=== PATIENT | male | born 1940 | race Caucasian/White ===

== ENCOUNTER 2018-10-29 19:31 | Inpatient (IN) | payer MEDICARE, BC ==
[~2018-10-29] VITALS: Ht 172.7 cm; Wt 96.6 kg
[2018-10-29] MEDS ORDERED: IV NORMAL SALINE 1000 ML BAG IV ONE (20:15)
[2018-10-29] MEDS ORDERED: ONDANSETRON 4 MG/2 ML VIAL IV ONE (20:15)
[2018-10-29] MEDS ORDERED: ONDANSETRON 4 MG/2 ML VIAL ONE (20:17)
[2018-10-29] MEDS ORDERED: MORPHINE SULFATE 2 MG/1 ML DISP.SYRIN ONE (20:28)
[2018-10-29] MEDS ORDERED: MUPIROCIN 2% OINT 22 GM TUBE TP ONE (20:30)
[2018-10-29] MEDS ORDERED: MUPIROCIN 2% OINT 22 GM TUBE ONE (20:30)
[2018-10-29] MEDS ORDERED: MORPHINE SULFATE 2 MG/1 ML DISP.SYRIN IV ONE (20:30)
--- NOTE | 2018-10-29 20:37 | NUR ---
patient taken down to CT with radioogy [facility].
[2018-10-29 20:38] LABS: BASOPHILS # (AUTO) 0.1 K/uL (0.0-8.0); BASOPHILS % (AUTO) 0.5 % (0.0-2.0); EOSINOPHILS % (AUTO) 0.3 % (0.0-7.0); HEMOGLOBIN 14.2 g/dL (12.5-16.3); LYMPHOCYTES # (AUTO) 1.8 K/uL (20.0-40.0); LYMPHOCYTES % (AUTO) 16.7 % (20.5-51.5); MEAN CORPUSCULAR HEMOGLOBIN 31.2 uug (23.8-33.4); MEAN CORPUSCULAR HGB CONC 33 g/dL (32.5-36.3); MEAN CORPUSCULAR VOLUME 94.2 fL (73.0-96.2); MONOCYTES # (AUTO) 1.2 K/uL (2.0-10.0); MONOCYTES % (AUTO) 10.7 % (0.0-11.0); NEUTROPHILS # (AUTO) 7.9 K/uL (1.8-8.9); NEUTROPHILS % (AUTO) 71.8 % (38.5-71.5); PLATELET COUNT (AUTO) 199 K/uL (152-348); RED BLOOD CELL COUNT(AUTO) 4.56 MIL/uL (4.06-5.63)
[2018-10-29 20:48] LABS: CARBON DIOXIDE 21 mmol/L (21-32); CHLORIDE 108 mmol/L (98-107); CREATININE 1.7 mg/dL (0.6-1.3); GLUCOSE 138 mg/dL (74-106); POTASSIUM 3.9 mmol/L (3.5-5.1); UREA NITROGEN, BLOOD 33 mg/dL (7-18)
[2018-10-29 20:52] LABS: ETHANOL < 3 MG/DL (0-0)
[2018-10-29 20:56] LABS: ALANINE AMINOTRANSFERASE 23 U/L (16-63); ALKALINE PHOSPHATASE 108 U/L (50-136); ASPARTATE AMINOTRANSFERASE 34 U/L (15-37); BILIRUBIN,DIRECT 0.2 mg/dL (0.0-0.2); BILIRUBIN,TOTAL 0.8 mg/dL (0.2-1.0); TOTAL PROTEIN, SERUM 7.2 g/dL (6.4-8.2)
--- NOTE | 2018-10-29 21:00 | NUR ---
No medication list on file, per EMT patient takes Tylenol. Pt confused and disoriented unable to provide any history or meds.
[2018-10-29 21:16] LABS: LIPASE 67 U/L (73-393)
[2018-10-29 21:19] LABS: THYROID STIMULATING HORMONE 1.323 mIU/mL (0.358-3.740)
[2018-10-29] MEDS ORDERED: LEVOFLOXACIN 500 MG/D5W 100ML PIGGYBACK IV ONE (21:30)
[2018-10-29] MEDS ORDERED: CLINDAMYCIN PHOSPHATE 600 MG/4 ML VIAL IM ONE (21:30)
[2018-10-29] MEDS ORDERED: CLINDAMYCIN PHOSPHATE 600 MG/4 ML VIAL ONE (21:42)
[2018-10-29] MEDS ORDERED: LEVOFLOXACIN 500 MG/D5W 100 ML ONE (21:43)
--- NOTE | 2018-10-29 21:55 | NUR ---
Dr. Cruz on panel call with Genevieve Palacios NP. Patient accepted for admission to [facility], diagnosis possible pneumonia.
[2018-10-29] MEDS ORDERED: ACET-73 PO (22:02)
--- NOTE | 2018-10-29 22:28 | NUR ---
unable to take patient to telemetry floor at this time. waiting for house supervispor to locatate sitter/nut steamer staff to be at bedside for patient.
[2018-10-29] MEDS ORDERED: Z GUARD REMEDY PASTE 57 GM TUBE TOP PRN (22:30)
[2018-10-29] MEDS ORDERED: MAGNESIUM HYDROXIDE 30 ML LIQUID UDC PO PRN (22:30)
[2018-10-29] MEDS ORDERED: ONDANSETRON 4 MG/2 ML VIAL IV PRN (22:30)
[2018-10-30 00:55] VITALS: BP 149/62
--- NOTE | 2018-10-30 01:02 | NUR ---
patient transferred to tele via yudy with DANELLE Danielson
[2018-10-30] MEDS: IV NS 1000 ML 1,000 ML IV PRN ×2 (01:41→16:59)
--- NOTE | 2018-10-30 02:00 | NUR ---
Admitting notes: patient received from ER via gurney and transferred to bed. Patient is awake and alert, oriented x 1. VS are WNL and patient is stable. All pertinent assessments completed and integumentary issues noted/photographed per unit protocol. 1:1 sitter at bedside. Current hold in place until 11/01/18 @ 1440h. Will continue to monitor.
[2018-10-30 04:00] VITALS: BP 140/62
--- NOTE | 2018-10-30 04:45 | NUR ---
Left AC IV cath infiltrated. IV cath removed and site elevated with ice pack. New IV site started on left upper arm, 22g with IV NS @ 75mL/hr running.
[2018-10-30 06:10] LABS: BASOPHILS % (AUTO) 0.2 % (0.0-2.0); EOSINOPHILS % (AUTO) 0.1 % (0.0-7.0); HEMATOCRIT 40.2 % (36.7-47.1); HEMOGLOBIN 13.6 g/dL (12.5-16.3); LYMPHOCYTES # (AUTO) 1.9 K/uL (20.0-40.0); LYMPHOCYTES % (AUTO) 14.4 % (20.5-51.5); MEAN CORPUSCULAR HEMOGLOBIN 31.4 uug (23.8-33.4); MEAN CORPUSCULAR HGB CONC 34 g/dL (32.5-36.3); MEAN CORPUSCULAR VOLUME 92.9 fL (73.0-96.2); MONOCYTES # (AUTO) 1.3 K/uL (2.0-10.0); MONOCYTES % (AUTO) 10.2 % (0.0-11.0); NEUTROPHILS # (AUTO) 9.8 K/uL (1.8-8.9); NEUTROPHILS % (AUTO) 75.1 % (38.5-71.5); PLATELET COUNT (AUTO) 189 K/uL (152-348); RED BLOOD CELL COUNT(AUTO) 4.32 MIL/uL (4.06-5.63)
[2018-10-30 06:31] LABS: CARBON DIOXIDE 22 mmol/L (21-32); CHLORIDE 110 mmol/L (98-107); CHOLESTEROL 79 mg/dL (<200); CREATININE 1.4 mg/dL (0.6-1.3); GLUCOSE 118 mg/dL (74-106); HDL CHOLESTEROL 32 mg/dL (40-60); MAGNESIUM 1.8 mg/dL (1.8-2.4); PHOSPHOROUS 2.9 mg/dL (2.5-4.9); POTASSIUM 3.9 mmol/L (3.5-5.1); TRIGLYCERIDES 70 MG/DL (30-150); UREA NITROGEN, BLOOD 28 mg/dL (7-18)
--- NOTE | 2018-10-30 07:00 | NUR ---
Patient is laying in bed, resting comfortably. Patient has slept intermittently. Patient was given prescribed analgesics to relieve pain, as noted on FLACC scale as 5. 1:1 sitter remains at bedside. All safety and fall precaution measures are in place.
--- NOTE | 2018-10-30 07:15 | NUR ---
Received patient in Bed, awake and verbally responsive. On Oxygen at 3LPM via nasal canula, No signs of respiratory distress noted. No SOB. No complain of pain or discomfort. patient with 1:1 sitter, patient on NPO. IVF running at 75 cc/hr. No signs of IV infiltration on Right Upper Arm IV gauge 20 site. Will continue to monitor.
[2018-10-30 11:14] VITALS: BP 152/63
--- NOTE | 2018-10-30 13:00 | NUR ---
Seen and examined by Dr. pritchett with family at bedside.
[2018-10-30 14:46] VITALS: BP 156/63
--- NOTE | 2018-10-30 16:00 | NUR ---
Relayed KUB of ABD result to MAZIN underwood with Order to continue NPO for another day.
--- NOTE | 2018-10-30 16:04 | NUR ---
Patient Blood Pressure ranging from 156/63-153/51 CDL BULK DRIVER Philip made aware with No New Order.
--- NOTE | 2018-10-30 18:32 | NUR ---
patient in Bed, Awake. A/O x1 with Confusion. On Oxygen at 3LPM via nasal Cannula, No signs of Distress noted. No SOB. No complain of Pain or discomfort. FOX gauge 20 IV site intact, No signs of Infiltration noted, IVF running at 75cc/hr. Remains on NPO for another day, and will have a KUB tomorrow. Patient has 1:1 sitter at bedside. All needs attended and met. Will Endorse to Oncoming Nurse.
--- NOTE | 2018-10-30 19:52 | NUR ---
Spoke with Dr Jigna Quintanilla. She informed me that patient is a Benzodiazepine user and may have a withdrawal with seizure. Patient is NPO per hospitalist order. MAZIN Palacios was paged. BP is trending down from SBP of 178/70 to 161/61 now. Patient is more calmn also. Dr Quintanilla ordered 0.5 mg Ativan injection to be given now, pending a conference with attending physician. Bed was padded for seizure safety. Sitter at bedside.
[2018-10-30 20:00] VITALS: BP 164/61
[2018-10-30] MEDS: LORAZEPAM 2 MG/1 ML VIAL IV PRN (20:10)
[2018-10-30] MEDS ORDERED: ENALAPRILAT DIHYDRATE 1.25 MG/1 ML VIAL IV PRN (20:15)
--- NOTE | 2018-10-30 20:18 | NUR ---
Gave 0.5mg ativan IV. 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 Comfort and safety provided.
--- NOTE | 2018-10-30 21:05 | NUR ---
Talked to Dwight HARRIS, received order for Depakone 125mg Q8 IV routinely.
--- NOTE | 2018-10-30 22:00 | NUR ---
Patient is sleeping, had urine output, no BM.
[2018-10-30] MEDS ORDERED: VALPROATE SODIUM 500 MG/5 ML VIAL IV ONE (23:07)
[2018-10-30] MEDS: DEXTROSE 5% IV SCH (23:58)
[2018-10-30] MEDS: VALPROATE SODIUM IV SCH (23:58)
[2018-10-31 05:49] LABS: BASOPHILS % (AUTO) 0.4 % (0.0-2.0); EOSINOPHILS # (AUTO) 0.1 K/uL (0.0-0.7); EOSINOPHILS % (AUTO) 1.3 % (0.0-7.0); HEMATOCRIT 39.2 % (36.7-47.1); HEMOGLOBIN 13.4 g/dL (12.5-16.3); LYMPHOCYTES # (AUTO) 1.8 K/uL (20.0-40.0); LYMPHOCYTES % (AUTO) 23.4 % (20.5-51.5); MEAN CORPUSCULAR HEMOGLOBIN 31.6 uug (23.8-33.4); MEAN CORPUSCULAR HGB CONC 34 g/dL (32.5-36.3); MEAN CORPUSCULAR VOLUME 92.7 fL (73.0-96.2); MONOCYTES # (AUTO) 0.9 K/uL (2.0-10.0); MONOCYTES % (AUTO) 11.8 % (0.0-11.0); NEUTROPHILS % (AUTO) 63.1 % (38.5-71.5); PLATELET COUNT (AUTO) 186 K/uL (152-348); RED BLOOD CELL COUNT(AUTO) 4.23 MIL/uL (4.06-5.63); WHITE BLOOD COUNT (AUTO) 7.9 K/uL (3.6-10.2)
[2018-10-31 06:06] VITALS: BP 162/64
[2018-10-31 06:08] LABS: CARBON DIOXIDE 23 mmol/L (21-32); CHLORIDE 113 mmol/L (98-107); CREATININE 1.2 mg/dL (0.6-1.3); GLUCOSE 105 mg/dL (74-106); MAGNESIUM 1.9 mg/dL (1.8-2.4); PHOSPHOROUS 2.8 mg/dL (2.5-4.9); POTASSIUM 3.8 mmol/L (3.5-5.1); UREA NITROGEN, BLOOD 21 mg/dL (7-18)
[2018-10-31] MEDS: DEXTROSE 5% IV SCH ×2 (06:17→14:39)
[2018-10-31] MEDS: VALPROATE SODIUM IV SCH ×2 (06:17→14:39)
[2018-10-31] MEDS: IV NS 1000 ML 1,000 ML IV PRN ×2 (06:17→21:28)
[2018-10-31 07:42] VITALS: BP 144/52
--- NOTE | 2018-10-31 08:00 | NUR ---
Pt is in no acute distress. Pt confused. Reorient pt to time and place. Sitter at bedside for safety.
[2018-10-31] MEDS: METOCLOPRAMIDE HCL 10 MG/2 ML VIAL IV SCH ×3 (08:31→17:26)
[2018-10-31 12:59] VITALS: BP 154/71
[2018-10-31] MEDS ORDERED: risperiDONE 0.25 MG TABLET PO SCH ×3 (13:45→20:00)
[2018-10-31] MEDS: LORAZEPAM 0.5 MG TABLET PO SCH ×2 (14:39→21:27)
[2018-10-31 16:00] VITALS: BP 141/51
[2018-10-31] MEDS ORDERED: LOSARTAN POTASSIUM 50 MG TABLET PO SCH (17:45)
--- NOTE | 2018-10-31 18:00 | NUR ---
Pt tolerated dinner no n/v. Pt has good swallowing no aspiration noted. Pt stating that "someone is out to get him". Call light is within reach.
[2018-10-31 19:37] VITALS: BP 119/49
[2018-10-31] MEDS: risperiDONE 0.25 MG TABLET PO SCH (20:14)
--- NOTE | 2018-10-31 22:42 | NUR ---
Patient began vomiting, abdomen is firm, distended, absent bowel sounds. Zofran given. Called Genevieve Palacios, MAIL ORDER BILLER, she ordered NG tube placement, NPO, CXR and KUB post insertion. Tube was successfully placed, x-ray done. Emesis seized, abdomen is softer and less distended. Appears calm, no respiratory or cough noted. Lung sounds are clear bilaterally. Will monitor for safety.
[2018-10-31] MEDS: LORAZEPAM 2 MG/1 ML VIAL IV PRN (22:55)
[2018-10-31 23:35] VITALS: BP 119/44
--- NOTE | 2018-11-01 00:05 | NUR ---
Change of assignment, report given to DANELLE Lofton.
[2018-11-01] MEDS: METOCLOPRAMIDE HCL 10 MG/2 ML VIAL IV SCH ×4 (00:28→18:07)
[2018-11-01] MEDS: LORAZEPAM 2 MG/1 ML VIAL IV PRN ×2 (04:28→10:47)
[2018-11-01 05:59] VITALS: BP 130/54
[2018-11-01] MEDS: LORAZEPAM 0.5 MG TABLET PO SCH (06:00)
--- NOTE | 2018-11-01 06:59 | NUR ---
Assumed care; pt has ongoing NGT to drainage total of 1600 ml plus vomitus; pt pulling out lines despite ativan, referred to DR Corey and cameron gibbs; remains on 1:1 sitter; safety maintained. Addendum: 11/01/18 at 0721 by JUDSON DEVINE RN 1600 ml output to LIS
[2018-11-01 07:12] LABS: CARBON DIOXIDE 27 mmol/L (21-32); CHLORIDE 112 mmol/L (98-107); CREATININE 1.3 mg/dL (0.6-1.3); GLUCOSE 126 mg/dL (74-106); PHOSPHOROUS 1.7 mg/dL (2.5-4.9); POTASSIUM 3.1 mmol/L (3.5-5.1); UREA NITROGEN, BLOOD 18 mg/dL (7-18)
[2018-11-01 07:18] LABS: BASOPHILS # (AUTO) 0.1 K/uL (0.0-8.0); BASOPHILS % (AUTO) 0.8 % (0.0-2.0); EOSINOPHILS % (AUTO) 0.1 % (0.0-7.0); HEMATOCRIT 39.2 % (36.7-47.1); HEMOGLOBIN 13.1 g/dL (12.5-16.3); LYMPHOCYTES # (AUTO) 1.1 K/uL (20.0-40.0); LYMPHOCYTES % (AUTO) 8.6 % (20.5-51.5); MEAN CORPUSCULAR HEMOGLOBIN 31.5 uug (23.8-33.4); MEAN CORPUSCULAR HGB CONC 33 g/dL (32.5-36.3); MEAN CORPUSCULAR VOLUME 94.3 fL (73.0-96.2); MONOCYTES % (AUTO) 7.6 % (0.0-11.0); NEUTROPHILS # (AUTO) 10.5 K/uL (1.8-8.9); NEUTROPHILS % (AUTO) 82.9 % (38.5-71.5); PLATELET COUNT (AUTO) 177 K/uL (152-348); RED BLOOD CELL COUNT(AUTO) 4.15 MIL/uL (4.06-5.63)
[2018-11-01 07:29] LABS: WHITE BLOOD COUNT (AUTO) 12.6 K/uL (3.6-10.2)
[2018-11-01 07:48] LABS: MAGNESIUM 1.8 mg/dL (1.8-2.4)
[2018-11-01] MEDS: DIVALPROEX SPRINKLE 125 MG CAP.SPRINK PO SCH ×3 (08:00→17:00)
--- NOTE | 2018-11-01 08:00 | NUR ---
RECEIVED PT RESTING IN BED. NGT PLACEMENT CHECKED. PT WEARS MITTENS DR WELLS ORDERED. PT ON 1:1 SITTER. SAFETY MAINTAINED. NO SIGNS OF SOB OR ACUTE DISTRESS NOTED. TELEMETRY MONITORING. SINUS RHYTHM.WILL CONTINUE TO MONITOR.
[2018-11-01] MEDS: LOSARTAN POTASSIUM 50 MG TABLET PO SCH ×2 (09:00→21:00)
[2018-11-01] MEDS: risperiDONE 0.25 MG TABLET PO SCH (09:00)
[2018-11-01] MEDS: POTASSIUM CHLORIDE 50 ML IV SCH ×4 (10:59→14:47)
[2018-11-01] MEDS: IV NS 1000 ML 1,000 ML IV PRN (11:51)
[2018-11-01] MEDS ORDERED: PIPERACILLIN SODIUM/TAZOBACTAM 3.375 G in IV DEXTROSE 5% 50 ML IV SCH (12:00)
[2018-11-01] MEDS ORDERED: risperiDONE 0.25 MG TABLET PO SCH (13:30)
[2018-11-01] MEDS ORDERED: LORAZEPAM 2 MG/1 ML VIAL IV PRN ×2 (13:45→22:15)
[2018-11-01] MEDS: risperiDONE-M 0.5 MG TAB.RAPDIS PO SCH ×2 (13:54→21:06)
[2018-11-01] MEDS ORDERED: PIPERACILLIN/TAZOBACTAM/D5W 3.375 G in IV DEXTROSE 5% 50 ML IV SCH (14:00)
[2018-11-01] MEDS ORDERED: SODIUM PHOSPHATE MM 15 MM in IV DEXTROSE 5% 250 ML IV ONE (15:15)
[2018-11-01 16:00] VITALS: BP 161/77
--- NOTE | 2018-11-01 18:00 | NUR ---
End of shift report. pt has ongoing NGT to drainage total of 450 ml; , referred to DR Corey and ordered mittens order renewed; remains on 1:1 sitter; safety maintained.
--- NOTE | 2018-11-01 19:45 | NUR ---
Received patient asleep in bed, not in any form of distress. Noted with oxygen support at 3lpm via nasal cannula. With NGT to low intermittent suction, noted with greenish output. Noted with IV access on both arms, both patent and intact. With bilateral soft mittens for safety since patient attempts to pull out tubes. With sitter at bedside for safety. Bed in moderate high back rest to avoid aspiration, locked, side rails up x 2 and padded for safety. Seizure precautions observed. Will continue to monitor.
[2018-11-01 20:00] VITALS: BP 166/65
[2018-11-01] MEDS ORDERED: ACETAMINOPHEN 650 MG SUPP.RECT RC PRN (20:45)
[2018-11-01] MEDS: PIPERACILLIN/TAZOBACTAM/D5W 3.375 G in IV DEXTROSE 5% 50 ML IV SCH (21:12)
[2018-11-02] MEDS: METOCLOPRAMIDE HCL 10 MG/2 ML VIAL IV SCH ×4 (00:31→17:40)
[2018-11-02] MEDS: IV NS 1000 ML 1,000 ML IV PRN ×2 (00:52→15:25)
[2018-11-02] MEDS: PIPERACILLIN/TAZOBACTAM/D5W 3.375 G in IV DEXTROSE 5% 50 ML IV SCH ×3 (05:34→21:01)
[2018-11-02 06:35] VITALS: BP 148/67
[2018-11-02 06:36] LABS: ALANINE AMINOTRANSFERASE 19 U/L (16-63); ALKALINE PHOSPHATASE 78 U/L (50-136); ASPARTATE AMINOTRANSFERASE 24 U/L (15-37); BILIRUBIN,TOTAL 1.1 mg/dL (0.2-1.0); CARBON DIOXIDE 28 mmol/L (21-32); CHLORIDE 113 mmol/L (98-107); CREATININE 1.2 mg/dL (0.6-1.3); GLUCOSE 97 mg/dL (74-106); PHOSPHOROUS 3.1 mg/dL (2.5-4.9); POTASSIUM 3.6 mmol/L (3.5-5.1); UREA NITROGEN, BLOOD 16 mg/dL (7-18)
[2018-11-02 06:52] LABS: BASOPHILS % (AUTO) 0.4 % (0.0-2.0); EOSINOPHILS # (AUTO) 0.4 K/uL (0.0-0.7); EOSINOPHILS % (AUTO) 4.9 % (0.0-7.0); HEMATOCRIT 37.9 % (36.7-47.1); HEMOGLOBIN 12.6 g/dL (12.5-16.3); LYMPHOCYTES # (AUTO) 1.7 K/uL (20.0-40.0); MEAN CORPUSCULAR HEMOGLOBIN 31.6 uug (23.8-33.4); MEAN CORPUSCULAR HGB CONC 33 g/dL (32.5-36.3); MEAN CORPUSCULAR VOLUME 95.1 fL (73.0-96.2); MONOCYTES # (AUTO) 0.7 K/uL (2.0-10.0); MONOCYTES % (AUTO) 8.4 % (0.0-11.0); NEUTROPHILS # (AUTO) 5.1 K/uL (1.8-8.9); NEUTROPHILS % (AUTO) 64.3 % (38.5-71.5); PLATELET COUNT (AUTO) 156 K/uL (152-348); RED BLOOD CELL COUNT(AUTO) 3.99 MIL/uL (4.06-5.63)
--- NOTE | 2018-11-02 06:58 | NUR ---
Patient slept intermittently throughout the night. Still with oxygen support at 3lpm via nasal cannula. With NGT to low intermittent suction, noted with greenish output. Still with IV access on both arms, both patent and intact. Attended all needs. Ensured safety and comfort.
[2018-11-02 07:09] LABS: WHITE BLOOD COUNT (AUTO) 7.9 K/uL (3.6-10.2)
--- NOTE | 2018-11-02 07:15 | NUR ---
Received patient in bed resting with HOB elevated, patient alert and oriented x3. patient on intermittent suction. No hold. With 1:1 sitter for safety. No s/s of acute distress noted and no c/o pain at this time. IV intact and patent. Safety precautions in place. Safety and comfort provided at all times. Call light within reach. Will continue to monitor
[2018-11-02] MEDS ORDERED: LORAZEPAM 2 MG/1 ML VIAL IV PRN (07:45)
[2018-11-02] MEDS: DIVALPROEX SPRINKLE 125 MG CAP.SPRINK PO SCH ×3 (08:00→17:00)
[2018-11-02] MEDS: LOSARTAN POTASSIUM 50 MG TABLET PO SCH ×2 (09:00→20:55)
[2018-11-02] MEDS: risperiDONE-M 0.5 MG TAB.RAPDIS PO SCH ×2 (09:07→21:03)
[2018-11-02 12:00] VITALS: BP 147/59
[2018-11-02] MEDS: LORAZEPAM 2 MG/1 ML VIAL IV PRN ×2 (13:21→23:52)
[2018-11-02 15:00] VITALS: BP 165/59
--- NOTE | 2018-11-02 19:00 | NUR ---
Patient in bed laying comfortably with HOB elevated. continue 1:1 sitter for safety and patient is trying to removed NG tube.no c/o pain and no s/s acute distress noted at this time. provided safety and comfort at all times. kept clean and dry at all times. call light within reached. will continue to monitor.
[2018-11-02 20:00] VITALS: BP 155/62
--- NOTE | 2018-11-03 | NUR ---
NG tube to be discontinued after aspiration per MAZIN Palacios. NG tube discontinued.
[2018-11-03] MEDS: METOCLOPRAMIDE HCL 10 MG/2 ML VIAL IV SCH ×5 (00:29→23:43)
[2018-11-03] MEDS: LORAZEPAM 2 MG/1 ML VIAL IV PRN ×3 (01:40→22:39)
[2018-11-03] MEDS: PIPERACILLIN/TAZOBACTAM/D5W 3.375 G in IV DEXTROSE 5% 50 ML IV SCH ×3 (05:33→21:28)
--- NOTE | 2018-11-03 05:42 | NUR ---
Patient slept intermittently. no signs of acute distress. v/s stable. safety and comfort measures provided. 1:1 sitter at bedside for safety. NG discontinued. Ativan 1mg administered once for anxiety and agitation and 0.5 mg administered once for s/s withdrawal. will endorse care accordingly. risperidone and losartan returned to [facility] once. risperidone returned on accident and pulled from [facility] and administered to patient.
[2018-11-03 06:00] VITALS: BP 145/59
[2018-11-03 06:38] LABS: BASOPHILS % (AUTO) 0.3 % (0.0-2.0); EOSINOPHILS # (AUTO) 0.4 K/uL (0.0-0.7); EOSINOPHILS % (AUTO) 4.7 % (0.0-7.0); HEMATOCRIT 38.5 % (36.7-47.1); HEMOGLOBIN 13.1 g/dL (12.5-16.3); LYMPHOCYTES # (AUTO) 1.6 K/uL (20.0-40.0); LYMPHOCYTES % (AUTO) 20.1 % (20.5-51.5); MEAN CORPUSCULAR HEMOGLOBIN 31.6 uug (23.8-33.4); MEAN CORPUSCULAR HGB CONC 34 g/dL (32.5-36.3); MONOCYTES # (AUTO) 0.5 K/uL (2.0-10.0); MONOCYTES % (AUTO) 6.4 % (0.0-11.0); NEUTROPHILS # (AUTO) 5.5 K/uL (1.8-8.9); NEUTROPHILS % (AUTO) 68.5 % (38.5-71.5); PLATELET COUNT (AUTO) 159 K/uL (152-348); RED BLOOD CELL COUNT(AUTO) 4.14 MIL/uL (4.06-5.63); WHITE BLOOD COUNT (AUTO) 8.1 K/uL (3.6-10.2)
[2018-11-03 07:03] LABS: CARBON DIOXIDE 23 mmol/L (21-32); CHLORIDE 113 mmol/L (98-107); CREATININE 1.1 mg/dL (0.6-1.3); GLUCOSE 86 mg/dL (74-106); POTASSIUM 3.7 mmol/L (3.5-5.1); UREA NITROGEN, BLOOD 17 mg/dL (7-18)
[2018-11-03] MEDS: DIVALPROEX SPRINKLE 125 MG CAP.SPRINK PO SCH ×3 (08:00→17:00)
--- NOTE | 2018-11-03 08:00 | NUR ---
Received patient in bed resting with HOB elevated, patient alert and oriented x2. 1:1 sitter for safety. No s/s of acute distress OR sob noted and no c/o pain at this time. IV intact and patent on L FA and R Hand. Safety precautions in place. Safety and comfort provided at all times. Call light within reach. Will continue to monitor. Pt scheduled for a swallow eval today.
[2018-11-03] MEDS: risperiDONE-M 0.5 MG TAB.RAPDIS PO SCH ×2 (08:48→20:17)
[2018-11-03] MEDS: LOSARTAN POTASSIUM 50 MG TABLET PO SCH ×2 (08:49→20:22)
[2018-11-03] MEDS: IV 1/2NS 1000 ML 1,000 ML IV PRN ×2 (08:51→22:13)
[2018-11-03] MEDS ORDERED: CLONAZEPAM 0.5 MG TABLET PO PRN (10:15)
[2018-11-03 11:00] VITALS: BP 143/73
[2018-11-03 16:00] VITALS: BP 151/61
[2018-11-03] MEDS: ALPRAZOLAM 0.5 MG TABLET PO SCH (17:00)
--- NOTE | 2018-11-03 18:00 | NUR ---
Patient appears comfortable. Still with oxygen support at 3lpm via nasal cannula. IVF running. IV access on both arms, both patent and intact. Attended all needs. Ensured safety and comfort. 1:1 sitter at bedside for safety.
--- NOTE | 2018-11-03 19:30 | NUR ---
Received patient in bed AAOx2. HOB kept elevated for aspiration prec. On O2 at 3lpm. No SOB, not in distress at this time. IV site on RFA intact and patent w/ IVF infusing. Cont w/ 1:1 sitter for safety. Safety measures observed. Call light within reach
[2018-11-03 20:15] VITALS: BP 178/75
[2018-11-03] MEDS: HYDROCODONE/APAP 5-325MG TABLET PO PRN (20:16)
--- NOTE | 2018-11-03 23:00 | NUR ---
Patient noted w/ x1 episode of agitation, trying to pull his IV out, PRN Ativan 1mg IV given, noted effective.
--- NOTE | 2018-11-04 | NUR ---
IV site on RFA got infiltrated, reinserted IV g#22 on R wrist, intact and patent.
[2018-11-04] MEDS: TEMAZEPAM 7.5 MG CAPSULE PO PRN (00:25)
--- NOTE | 2018-11-04 00:30 | NUR ---
Patient asked for sleeping pill, PRN Temazepam 7.5mg PO given.
[2018-11-04] MEDS: PIPERACILLIN/TAZOBACTAM/D5W 3.375 G in IV DEXTROSE 5% 50 ML IV SCH ×3 (06:03→21:15)
[2018-11-04] MEDS: METOCLOPRAMIDE HCL 10 MG/2 ML VIAL IV SCH ×4 (06:03→23:27)
[2018-11-04 06:10] VITALS: BP 169/62
--- NOTE | 2018-11-04 06:26 | NUR ---
Patient slept intermittently. No complaints of pain at this time. No SOB noted. IV site on R wrist intact and patent w/ IVF and IV ATB infusing. Continue on 1:1 sitter for safety, no episode of agitation at this time. All needs attended. Call light in reach. Will endorse accordingly
[2018-11-04] MEDS: LOSARTAN POTASSIUM 50 MG TABLET PO SCH ×2 (06:38→20:25)
[2018-11-04 06:50] LABS: ALANINE AMINOTRANSFERASE 12 U/L (16-63); ALKALINE PHOSPHATASE 68 U/L (50-136); ASPARTATE AMINOTRANSFERASE 16 U/L (15-37); BILIRUBIN,TOTAL 0.9 mg/dL (0.2-1.0); CARBON DIOXIDE 24 mmol/L (21-32); CHLORIDE 112 mmol/L (98-107); GLUCOSE 104 mg/dL (74-106); MAGNESIUM 1.9 mg/dL (1.8-2.4); PHOSPHOROUS 2.9 mg/dL (2.5-4.9); POTASSIUM 3.2 mmol/L (3.5-5.1); TOTAL PROTEIN, SERUM 5.8 g/dL (6.4-8.2); UREA NITROGEN, BLOOD 11 mg/dL (7-18)
[2018-11-04 06:55] LABS: BASOPHILS % (AUTO) 0.4 % (0.0-2.0); EOSINOPHILS # (AUTO) 0.3 K/uL (0.0-0.7); HEMATOCRIT 36.4 % (36.7-47.1); HEMOGLOBIN 12.4 g/dL (12.5-16.3); LYMPHOCYTES # (AUTO) 1.5 K/uL (20.0-40.0); LYMPHOCYTES % (AUTO) 23.1 % (20.5-51.5); MEAN CORPUSCULAR HEMOGLOBIN 31.7 uug (23.8-33.4); MEAN CORPUSCULAR HGB CONC 34 g/dL (32.5-36.3); MONOCYTES # (AUTO) 0.6 K/uL (2.0-10.0); MONOCYTES % (AUTO) 8.9 % (0.0-11.0); NEUTROPHILS # (AUTO) 4.1 K/uL (1.8-8.9); NEUTROPHILS % (AUTO) 62.6 % (38.5-71.5); PLATELET COUNT (AUTO) 159 K/uL (152-348); RED BLOOD CELL COUNT(AUTO) 3.91 MIL/uL (4.06-5.63); WHITE BLOOD COUNT (AUTO) 6.6 K/uL (3.6-10.2)
--- NOTE | 2018-11-04 07:20 | NUR ---
received patient in bed, with 1:1 sitter. Patient is Awake. On Oxygen at 2LPM via nasal Canula. No signs of Respiratory distress noted. No SOB. No complain of Pain or Discomfort. Will continue to monitor.
[2018-11-04] MEDS: DIVALPROEX SPRINKLE 125 MG CAP.SPRINK PO SCH ×3 (08:16→17:11)
[2018-11-04] MEDS: ALPRAZOLAM 0.5 MG TABLET PO SCH ×3 (08:17→17:11)
[2018-11-04] MEDS: risperiDONE-M 0.5 MG TAB.RAPDIS PO SCH ×2 (08:20→20:25)
[2018-11-04] MEDS: POTASSIUM CHLORIDE 50 ML IV SCH ×2 (09:03→10:17)
[2018-11-04] MEDS ORDERED: POTASSIUM CHLORIDE 10 MEQ TAB.PRT.SR PO ONE (10:45)
[2018-11-04] MEDS: HYDROCODONE/APAP 5-325MG TABLET PO PRN (12:30)
[2018-11-04] MEDS ORDERED: LOSA50TA3 PO (12:59)
[2018-11-04] MEDS ORDERED: ALPR0.5T PO (12:59)
[2018-11-04] MEDS ORDERED: RISP0.5T74 PO (12:59)
[2018-11-04] MEDS ORDERED: LEVO500T2 PO (12:59)
[2018-11-04] MEDS ORDERED: ACET650S24 RC (12:59)
[2018-11-04] MEDS ORDERED: HYDR-3326 PO (12:59)
[2018-11-04] MEDS ORDERED: TEMA7.5C PO (12:59)
[2018-11-04] MEDS ORDERED: DIVA125C2 PO (12:59)
[2018-11-04] MEDS: IV 1/2NS 1000 ML 1,000 ML IV PRN (18:02)
--- NOTE | 2018-11-04 18:14 | NUR ---
Patient in Bed, awake and verbally responsive. with 1:1 sitter at bedside. No signs of Respiratory distress noted. No SOB. On oxygen at 2LPM, tolerating well. saturating at 98%. Pain medication given as ordered. All due medications given ad ordered. Will Endorse to Oncoming Nurse.
--- NOTE | 2018-11-04 19:30 | NUR ---
Received patient in bed asleep, arousable. HOB kept elevated for aspiration prec. On O2 at 3lpm via NC saturating at 96%. No SOB, not in distress at this time. IV site on R wrist intact and patent w/ IVF infusing. Safety measures observed. Call light within reach
[2018-11-04 20:17] VITALS: BP 143/61
[2018-11-05] MEDS: TEMAZEPAM 7.5 MG CAPSULE PO PRN (00:59)
--- NOTE | 2018-11-05 01:00 | NUR ---
Patient asked for a sleeping pill, PRN Temazepam 7.5mg PO given.
[2018-11-05] MEDS: PIPERACILLIN/TAZOBACTAM/D5W 3.375 G in IV DEXTROSE 5% 50 ML IV SCH ×2 (05:15→14:05)
[2018-11-05] MEDS: METOCLOPRAMIDE HCL 10 MG/2 ML VIAL IV SCH ×2 (05:21→11:27)
[2018-11-05 05:42] VITALS: BP 135/64
[2018-11-05] MEDS: LORAZEPAM 2 MG/1 ML VIAL IV PRN (06:24)
--- NOTE | 2018-11-05 06:33 | NUR ---
Patient slept for 5 hours. No SOB noted, no complaints of pain at this time. w/ x 1 episode of anxiety and hallucination this shift, PRN Ativan 1mg IV given. IV site on R wrist intact and patent w/ IVF infusing. Safety measures observed. Will endorse accordingly
[2018-11-05 06:53] LABS: CARBON DIOXIDE 25 mmol/L (21-32); CHLORIDE 108 mmol/L (98-107); GLUCOSE 83 mg/dL (74-106); MAGNESIUM 1.7 mg/dL (1.8-2.4); PHOSPHOROUS 2.8 mg/dL (2.5-4.9); POTASSIUM 3.8 mmol/L (3.5-5.1); UREA NITROGEN, BLOOD 9 mg/dL (7-18)
[2018-11-05 07:01] LABS: BASOPHILS % (AUTO) 0.4 % (0.0-2.0); EOSINOPHILS # (AUTO) 0.3 K/uL (0.0-0.7); EOSINOPHILS % (AUTO) 5.4 % (0.0-7.0); HEMATOCRIT 38.4 % (36.7-47.1); HEMOGLOBIN 12.9 g/dL (12.5-16.3); LYMPHOCYTES # (AUTO) 1.8 K/uL (20.0-40.0); LYMPHOCYTES % (AUTO) 27.6 % (20.5-51.5); MEAN CORPUSCULAR HEMOGLOBIN 32.1 uug (23.8-33.4); MEAN CORPUSCULAR HGB CONC 34 g/dL (32.5-36.3); MEAN CORPUSCULAR VOLUME 95.3 fL (73.0-96.2); MONOCYTES # (AUTO) 0.5 K/uL (2.0-10.0); MONOCYTES % (AUTO) 8.2 % (0.0-11.0); NEUTROPHILS # (AUTO) 3.7 K/uL (1.8-8.9); NEUTROPHILS % (AUTO) 58.4 % (38.5-71.5); PLATELET COUNT (AUTO) 145 K/uL (152-348); RED BLOOD CELL COUNT(AUTO) 4.03 MIL/uL (4.06-5.63); WHITE BLOOD COUNT (AUTO) 6.3 K/uL (3.6-10.2)
--- NOTE | 2018-11-05 07:35 | NUR ---
Received Patient in Bed, Awake and verbally responsive. On Oxygen at 2 LPM, No signs of Distress noted. No complain of pain or discomfort at this time. Right Wrist IV site intact. will continue to monitor.
[2018-11-05] MEDS: DIVALPROEX SPRINKLE 125 MG CAP.SPRINK PO SCH ×2 (08:36→12:11)
[2018-11-05] MEDS: LOSARTAN POTASSIUM 50 MG TABLET PO SCH (08:36)
[2018-11-05] MEDS: risperiDONE-M 0.5 MG TAB.RAPDIS PO SCH (08:36)
[2018-11-05] MEDS: ALPRAZOLAM 0.5 MG TABLET PO SCH ×2 (08:36→12:11)
[2018-11-05 11:02] VITALS: BP 144/69
[2018-11-05] MEDS ORDERED: MAGNESIUM SULFATE/D5W 100 ML IV SCH (12:00)
--- NOTE | 2018-11-05 12:00 | NUR ---
Patient with new Order to be discharge to [facility]. Patient and RP Dequan Made aware.
--- NOTE | 2018-11-05 14:00 | NUR ---
Called [facility], Spoke with Mati MCCLENDON and Endorse Accordingly. patient will be tow picker at 1530.
--- NOTE | 2018-11-05 16:26 | NUR ---
Patient in bed, awake and verbally responsive. No signs of Distress noted. No SOB. On Oxygen at 2LPM via nasal canula. No complain of Pain at this time. Zosyn 3.375 given at 1400. Discharge Order explained to patient but unable to Understating d/t Confusion. Removed IV access and Wrist Band, All belongings was sent to patient. Patient will be discharge to [facility] and gave report to Mati LABOY, Patient was Picked up by 2 EMT in stable condition.
== END 2018-11-05 16:30 | DRG 177 ==
LOC: ER 19:34 → TELE 22:00 → TELE3 10-30 01:05 → MEDSURG3 11-01 10:25
PROVIDERS: ADMIT Nurse Practitioner Acute Care; ATTEND Nurse Practitioner Acute Care
PROC: 0D9670Z Drainage of Stomach with Drainage Device, Via Natural or Artificial Opening (ICD-10-PCS; principal; 2018-10-31)
DX: J69.0 Pneumonitis due to inhalation of food and vomit (principal); N17.0 Acute kidney failure with tubular necrosis; K56.7 Ileus, unspecified; F05 Delirium due to known physiological condition; E87.0 Hyperosmolality and hypernatremia; E46 Unspecified protein-calorie malnutrition; F41.9 Anxiety disorder, unspecified; I12.9 Hypertensive chronic kidney disease with stage 1 through stage 4 chronic kidney disease, or unspecified chronic kidney disease; N18.9 Chronic kidney disease, unspecified; N20.0 Calculus of kidney; K57.30 Diverticulosis of large intestine without perforation or abscess without bleeding; M17.0 Bilateral primary osteoarthritis of knee; M85.80 Other specified disorders of bone density and structure, unspecified site; L03.031 Cellulitis of right toe; I70.203 Unspecified atherosclerosis of native arteries of extremities, bilateral legs; E86.9 Volume depletion, unspecified; Z91.19 Patient's noncompliance with other medical treatment and regimen; Z91.14 Patient's other noncompliance with medication regimen; Z90.79 Acquired absence of other genital organ(s); Z91.81 History of falling
CPT/HCPCS: 36415; 70030-TC; 70450; 71045; 72125; 73660; 74018; 83690; 83735; 84100; 84443; 85025; 85730; 87040; 93005; A4663; G0378; G0480; J1956; J2060; J2270; J2405; J2543; J2765; J3475; J3480; J3490; J7030; J7050; J7060